=== PATIENT | female | born 1990 | race African-American/Black ===

== ENCOUNTER 2017-03-13 02:54 | Inpatient (IN) | payer BC ==
--- NOTE | ~2017-03-13 | HP ---
History And Physical [address] [place]. [address] NAME: AMENA TRUONG : [birth year] STATUS : ADM Donavon PAT#: [id number] AGE: 27 ADM/REG DATE : 03/13/17 MR#: [id number] REPORT SERV DATE: 03/13/17 DICTATED BY: PAIGE ALFARO DATE: 03/13/17 REPORT STATUS : Draft TRANSCRIBED BY: MODL DATE: 03/13/17 DATE OF ADMISSION: 03/13/2017 CHIEF COMPLAINT: A 27-year-old female presenting with nausea, hematemesis, and reported melena. HISTORY OF PRESENT ILLNESS: The patient's history was obtained through interview with the patient and her niece coupled with review of [facility] medical records. For about three or four days, the patient reports having increasing epigastric abdominal pain, a burning sharp discomfort, 8/10 severity at its worse, that does not radiate. It seems to be associated with increasing nausea. At first the nausea was accompanied by vomiting that appeared yellow green or like food contents, but then it has become intermittently tinged with blood and also looking like coffee grounds in the last 24 hours with a black discoloration. She also describes diarrhea with a black stool. No bright red blood per rectum. She has had hiccups, reflux symptoms. She has felt lightheaded, but no confusion. She admits to feeling short of breath characterized by dyspnea on exertion. No chest pain. No cough. REVIEW OF SYSTEMS: Otherwise, a 14-point review of systems was obtained and negative. PAST MEDICAL HISTORY: 1. Peptic ulcer disease. 2. Depression and anxiety. 3. Right lung mass described in January 2017, 1.4 x 1.6 cm of unclear importance, but with no known follow up since that time. PAST SURGICAL HISTORY: 1. Appendectomy. 2. Shoulder surgery. 3. Knee surgery. ALLERGIES: HYDROCODONE. SOCIAL HISTORY: No tobacco abuse. No alcohol abuse. Occasional marijuana use. She is single, has no biological children. She is unemployed and is seeking disability apparently for psychiatric reasons. FAMILY HISTORY: Diabetes and heart disease. CURRENT MEDICATIONS: Unknown at this time. We have requested that Pharmacy would History And Physical [address] [place] [address] NAME: AMENA TRUONG : [birth year] STATUS : ADM Donavon PAT#: [id number] AGE: 27 ADM/REG DATE : 03/13/17 MR#: [id number] REPORT SERV DATE: 03/13/17 DICTATED BY: PAIGE ALFARO DATE: 03/13/17 REPORT STATUS : Draft TRANSCRIBED BY: KANDICE DATE: 03/13/17 investigate and compile a medication list, but the patient is uncertain of her medicines even at this time. PHYSICAL EXAMINATION: VITAL SIGNS: Temperature 98.3, pulse 90, blood pressure 119/70, respiratory rate 20, O2 saturation 100% on room air. GENERAL: An irritable ill-appearing female, who describes distress from abdominal pain and nausea. There has been no active vomiting here in the emergency department for several hours though. HEENT: Pupils equal, round, and reactive to light. No conjunctival pallor. No scleral icterus. Nares are patent. Oropharynx was clear of obstruction. Moist mucous membranes. NECK: Trachea midline. No thyromegaly. LYMPHS: No cervical lymphadenopathy. No supraclavicular lymphadenopathy. RESPIRATORY: Clear to auscultation at bases. No wheezes, rales, or rhonchi. Normal respiratory effort. CARDIOVASCULAR: Regular rate and rhythm. No murmurs, rubs, or gallops. No extremity edema is appreciated. ABDOMEN: Soft by my exam. A flat abdomen. No distention, but is tender in the epigastric area, but I do not appreciate guarding effects or rebound. No hepatosplenomegaly. DERMATOLOGICAL: Warm and dry extremities. EXTREMITIES: No pallor. No cyanosis. PSYCHIATRIC: An animated affect and irritable and anxious mood. She is alert and oriented x3. LABORATORY DATA: White blood count 9.4, hemoglobin 13, hematocrit 39, platelets 229. Sodium 139, potassium 2.8, chloride 107, bicarb 24, BUN 15, creatinine 1.0, glucose 117. Serum test negative. Lipase 57. Liver enzymes within normal limits. STUDIES: An x-ray of the abdomen was reported as being "negative." ASSESSMENT AND PLAN: 1. Upper gastrointestinal bleed. Obtain a Gastroenterology consult with Dr. Nancy Ramirez. Place on IV proton pump inhibitor drip. Follow hemoglobin and hematocrit. 2. Hypokalemia. We will replace. Check magnesium. Placed on telemetry. 3. Right lung mass with no followup in the last few months and of uncertain importance. We will recheck a CT scan of the chest with contrast to help evaluate. [facility]/MODL Paige Alfaro M.D. / [id number] CC: History And Physical [address] [address] NAME: AMENA TRUONG : [birth year] STATUS : ADM Donavon PAT#: [id number] AGE: 27 ADM/REG DATE : 03/13/17 MR#: [id number] REPORT SERV DATE: 03/13/17 DICTATED BY: PAIGE ALFARO DATE: 03/13/17 REPORT STATUS : Draft TRANSCRIBED BY: KANDICE DATE: 03/13/17 MD Lydia Barraza
--- NOTE | ~2017-03-13 | DS ---
Discharge Summary [facility] [id number] [place]. [address] NAME: AMENA TRUONG : 86 STATUS : DIS IN PAT#: [id number] AGE: 27 ADM/REG DATE : 03/13/17 MR#: [id number] REPORT SERV DATE: 03/19/17 DICTATED BY: ELIAS MCKINLEY DATE: 03/18/17 REPORT STATUS : Draft TRANSCRIBED BY: MODL DATE: 03/18/17 ADMISSION DATE: 03/13/2017 DISCHARGE DATE: 03/18/2017 DISCHARGE DIAGNOSES: 1. Upper gastrointestinal bleed, resolved. 2. Esophagitis. 3. Status post esophagogastroduodenoscopy/colonoscopy. 4. Nausea and vomiting, resolved. 5. Hypokalemia, resolved. 6. Constipation, resolved. CONSULTATIONS: GI, Dr. Duncan, 03/14/2017. PROCEDURES AND IMAGIN. Abdominal x-ray, 03/13/2017. Impression: Bowel gas pattern is normal. No evidence of upper intraperitoneal air. No suspicious abnormal calcifications or areas of significant mass effect are identified. 2. CT chest, 03/13/2017. Impression: There has been involution of the right side lung mass previously identified. The lungs are clear. Heart is normal. 3. EGD, 03/14/2017. Impression: LA grade B reflux esophagitis. Z-line 39 cm from the incisors. Hiatal hernia. Erythematous mucosa in the gastric body. Biopsy. Gastritis. Biopsy. Normal duodenal bulb and second part of duodenum. Recommendation: No aspirin, ibuprofen, naproxen, or nonsteroidal anti-inflammatory medication. HOSPITAL COURSE: Please refer to history and physical dictated by Dr. Shaq Mcleod on 03/13/2017 for complete admission details as well as consultation note by Dr. Duncan. This patient is a 27-year-old female, who presented with complaints of nausea, vomiting, hematemesis, and reported melena. The patient stated upon admission that this has been ongoing for three to four days. Did state that she had epigastric pain with burning sharp discomfort, rating the scale on 8/10. The patient did describe her bowel movements as black. Denies bright red bleeding from rectum. The patient was admitted to the hospital. GI consult was obtained. The patient was evaluated by Dr. Duncan. The patient did undergo an EGD and colonoscopy. Findings as noted above. The patient was started on a clear liquid diet as well as Reglan. Continued on Protonix. The patient has been able to tolerate diet as tolerated. We will continue Reglan upon discharge as well as Protonix. The patient will follow up with GI in two to four weeks. The patient did have history of possible lung mass. Imaging obtained noted above stated involution of mass. The patient will continue follow up with her primary care. The patient had nausea and vomiting which has resolved. The patient also had noted hypokalemia upon admission, this was monitored per protocol and replaced. The patient did have regular bowel movement on 03/17/2017 without difficulty. The patient will be discharged home in hemodynamically stable condition to follow up with her primary care doctor and GI in two to four weeks. DISCHARGE MEDICATIONS: Discharge Summary [address] [address] NAME: AMENA TRUONG : 86 STATUS : DIS IN PAT#: [id number] AGE: 27 ADM/REG DATE : 03/13/17 MR#: [id number] REPORT SERV DATE: 03/19/17 DICTATED BY: ELIAS MCKINLEY DATE: 03/18/17 REPORT STATUS : Draft TRANSCRIBED BY: KANDICE DATE: 03/18/17 1. Reglan 10 mg one p.o. before breakfast and at bedtime. 2. Protonix 40 mg one p.o. b.i.d. breakfast and supper. 3. MiraLAX powder p.o. one packet twice daily p.r.n. 4. Phenergan 25 mg one p.o. every 6 hours p.r.n. for nausea. This discharge took less than 30 minutes. [facility]/MODL Elias Mckinley NP / [id number] CC: Vito Mckenzie MD
--- NOTE | ~2017-03-13 | EGD ---
EGD REPORT [facility] [address] [place] [address] NAME: MADHURI TRUONG : 86 STATUS : ADM Donavon PAT#: [id number] AGE: 27 ADM/REG DATE : 03/13/17 MR#: [id number] REPORT SERV DATE: 03/14/17 DICTATED BY: YOMI PETERSON DATE: 03/14/17 REPORT STATUS : Draft TRANSCRIBED BY: [facility] DATE: 03/14/17 Endoscopy Center Patient Name: Mdahuri Truong Date of : 1990 Attending MD: YOMI PETERSON, Procedure Date No Time: 03/14/2017 Procedure: Upper GI endoscopy Indications: Generalized abdominal pain, Hematemesis Medicines: Propofol per Anesthesia Complications: No immediate complications. Estimated blood loss: Minimal. Procedure: Pre-Anesthesia Assessment: - ASA Grade Assessment: II - A patient with mild systemic disease. After obtaining informed consent, the endoscope was passed under direct vision. Throughout the procedure, the patient's blood pressure, pulse, and oxygen saturations were monitored continuously. The GIF [id number] was introduced through the mouth, and advanced to the second part of duodenum. The upper GI endoscopy was accomplished with ease. The patient tolerated the procedure well. Findings: LA Grade B (one or more mucosal breaks greater than 5 mm, not extending between the tops of two mucosal folds) esophagitis with no bleeding was found 30 to 39 cm from the incisors. The Z-line was found 39 cm from the incisors. A small hiatus hernia was present. Localized severely erythematous mucosa, flattened, superficial and very localized/geographic) without bleeding was found in the proximal gastric body. Biopsies were taken with a cold forceps for histology. Estimated blood loss was minimal. Mild inflammation characterized by congestion (edema), erosions and erythema was found in the gastric antrum. Biopsies were taken with a cold forceps for histology. Estimated blood loss: none. The duodenal bulb and 2nd part of the duodenum were normal. Impression: - LA Grade B reflux esophagitis. - Z-line 39 cm from the incisors. - Hiatus hernia. - Erythematous mucosa in the gastric body. Biopsied. - Gastritis. Biopsied. - Normal duodenal bulb and 2nd part of the duodenum. EGD REPORT [address] [address] NAME: MADHURI TRUONG : [birth year] STATUS : ADM Donavon PAT#: [id number] AGE: 27 ADM/REG DATE : 03/13/17 MR#: [id number] REPORT SERV DATE: 03/14/17 DICTATED BY: YOMI PETERSON DATE: 03/14/17 REPORT STATUS : Draft TRANSCRIBED BY: [employer] DATE: 03/14/17 Recommendation: - [facility]. - Use Protonix (pantoprazole) 40 mg IV BID. - Follow an antireflux regimen. - No aspirin, ibuprofen, naproxen, or other non-steroidal anti-inflammatory drugs. - Clear liquid diet today. advance as tolerated - Await pathology results. Procedure Code(s): --- Professional --- 28457, Esophagogastroduodenoscopy, flexible, transoral; with biopsy, single or multiple Diagnosis Code(s): --- Professional --- K21.0, Gastro-esophageal reflux disease with esophagitis K44.9, Diaphragmatic hernia without obstruction or gangrene K31.9, Disease of stomach and duodenum, unspecified K29.70, Gastritis, unspecified, without bleeding R10.84, Generalized abdominal pain K92.0, Hematemesis CPT copyright 2013 [employer]. All rights reserved. The codes documented in this report are preliminary and upon outbound sales advisor review may be revised to meet current compliance requirements. YOMI PETERSON, 03/14/2017 5:27 PM This report has been signed electronically. Number of Addenda: 0 Note Initiated On: 03/14/2017 3:22 PM Scope Withdrawal Time 0 hours 0 minutes 0 seconds [address] [place] [address]
--- NOTE | ~2017-03-13 | CN ---
Consultation Report [facility] [address] [place]. [address] NAME: AMENA TRUONG : [birth year] STATUS : ADM Donavon PAT#: [id number] AGE: 27 ADM/REG DATE : 03/13/17 MR#: [id number] REPORT SERV DATE: 03/14/17 DICTATED BY: YOMI DUNCAN DATE: 03/14/17 REPORT STATUS : Draft TRANSCRIBED BY: MODL DATE: 03/14/17 DATE OF CONSULTATION: 03/13/2017 REASON FOR CONSULTATION: Hematemesis. HISTORY OF PRESENT ILLNESS: Ms. Truong is a 27-year-old black female with a history of a high blood pressure and peptic ulcer disease, who usually follows with Dr. Shah at [place] and had been hospitalized there recently for peptic ulcer disease as per the patient, who presented to [facility] with nausea, vomiting, diarrhea, and david hematemesis. She denies any bowel movements. No melena. No hematochezia. Last episode of hematemesis was the day prior to her admission. Her hemoglobin and hematocrit are 11.7 and 34.1 respectively, platelets 183, INR 1.2, MCV 92.4. BUN-creatinine ratio is 10-0.75. She had a CT of her chest done earlier today, which is pending at this time. Due to her mild distress, she is not able to cooperate fully and is not fully answering all of her questions at this time. PAST MEDICAL HISTORY: Peptic ulcer disease, hypertension. FAMILY HISTORY: Noncontributory. SOCIAL HISTORY: Denies. PHYSICAL EXAMINATION: VITAL SIGNS: Stable. Afebrile. GENERAL: The patient is awake, alert, and oriented x3. Well developed, well nourished, in mild distress secondary to nausea and fatigue per patient. HEENT: Atraumatic, normocephalic. Anicteric. Mucous membranes are moist. CARDIAC: S1, S2. CHEST: Clear, but poor inspiratory and expiratory effort. ABDOMEN: Soft, but tender to palpation diffusely without any rebound or guarding. Bowel sounds are normoactive. LABORATORY DATA: Shows WBC 7.8, hemoglobin 11.7, hematocrit 34.1, platelets 183, MCV 92.4, INR is 1.2. Sodium 141, potassium 3.3, chloride 109, bicarb 22, BUN 10, creatinine 0.75, glucose 84, albumin 3.3. Liver enzymes are normal. Lipase and TSH are normal. IMAGING: CT of the chest is pending at this time. IMPRESSION AND PLAN: Hematemesis of unclear etiology. Does have some mild anemia. Would like to see previous endoscopy records from Dr. Pablo Hines's office. Continue PPI, continue serial hemoglobin and hematocrit, and monitor for any further clinical bleeding. We will make n.p.o. after midnight and schedule for an EGD tomorrow. I reviewed the procedure indications, risks, benefits, and alternatives with the patient. She is agreeable to proceed with the above. Consultation Report [address] [place]. [address] NAME: AMENA TRUONG : [birth year] STATUS : ADM Donavon PAT#: [id number] AGE: 27 ADM/REG DATE : 03/13/17 MR#: [id number] REPORT SERV DATE: 03/14/17 DICTATED BY: YOMI DUNCAN DATE: 03/14/17 REPORT STATUS : Draft TRANSCRIBED BY: KANDICE DATE: 03/14/17 JÚNIOR/KANDICE Yomi Duncan MD / [id number] CC: Vito Mckenzie MD NO PCP
[2017-03-13 02:16] LABS: BASOPHILS 0.2 %; BASOPHILS ABSOLUTE 0.02 10/3/uL (0.0-0.16); EOSINOPHILS 0.2 %; EOSINOPHILS ABSOLUTE 0.02 10/3/uL (0.0-0.53); ER CBC TAT 0 Hrs 02 Mins; HEMATOCRIT 39.1 % (36.0-48.0); HEMOGLOBIN 13.4 g/dL (12.0-16.0); IMMATURE GRANULOCYTES 0.2 %; IMMATURE GRANULOCYTES ABSOLUTE 0.02 10/3/uL (0.0-0.11); LYMPHOCYTES 16.4 %; LYMPHOCYTES ABSOLUTE 1.54 10/3/uL (0.67-4.30); MEAN CORPUS HGB CONC 34.3 g/dL (32.0-36.0); MEAN CORPUSCULAR HEMOGLOB 31.4 pg (26.0-34.0); MEAN PLATELET VOLUME 9.6 fL (9.2-13.0); MONOCYTES 5.2 %; MONOCYTES ABSOLUTE 0.49 10/3/uL (0.21-1.20); NEUTROPHILS 77.8 %; NEUTROPHILS ABSOLUTE 7.28 10/3/uL (2.02-8.40); PLATELET COUNT 229 10/3/uL (150-400); RED CELL COUNT 4.27 10/6/uL (4.0-5.6); WHITE BLOOD CELLS 9.4 10/3/uL (4.5-10.5)
[2017-03-13 02:17] LABS: MANUAL DIFF NO %; MEAN CORPUSCULAR VOLUME 91.6 fL (80-100)
[2017-03-13 02:30] LABS: A/G RATIO 1.1 (0.7-1.9); ALBUMIN 4.1 G/DL (3.5-5.0); ALKALINE PHOSPHATASE 55 U/L (45-117); BUN (BLOOD UREA NITROGEN) 15 MG/DL (6-23); CALCIUM, SERUM 8.9 MG/DL (8.5-10.4); CHLORIDE, SERUM 107 MMOL/L (96-112); CO2 (CARBON DIOXIDE) 24 MMOL/L (24-34); CREATININE 1.04 MG/DL (0.55-1.02); GFR AFRICAN AMERICAN 84 ML/MIN (>=60); GFR NON AFRICAN AMERICAN 73 ML/MIN (>=60); GLOBULIN 3.8 G/DL (2.5-4.1); GLUCOSE, SERUM 117 MG/DL (60-99); SGOT(AST) 30 U/L (5-40); SGPT(ALT) 27 U/L (5-65); SODIUM, SERUM 139 MMOL/L (135-148); TOTAL BILIRUBIN 0.5 MG/DL (0-1.2); TOTAL PROTEIN 7.9 G/DL (6.0-8.5)
[2017-03-13 02:34] LABS: POTASSIUM, SERUM 2.8 MMOL/L (3.5-5.3)
[2017-03-13] MEDS ORDERED: PRILO PO (09:19)
[2017-03-13] MEDS ORDERED: PR25 PO (09:19)
[2017-03-13 13:07] LABS: HEMATOCRIT 36.6 % (36.0-48.0); HEMOGLOBIN 12.5 g/dL (12.0-16.0); MANUAL DIFF YES %; MEAN CORPUS HGB CONC 34.2 g/dL (32.0-36.0); MEAN CORPUSCULAR HEMOGLOB 31.6 pg (26.0-34.0); MEAN CORPUSCULAR VOLUME 92.4 fL (80-100); MEAN PLATELET VOLUME 10.5 fL (9.2-13.0); PLATELET COUNT 183 10/3/uL (150-400); RBC DISTRIBUTION WIDTH 12.9 % (12.0-16.0); RED CELL COUNT 3.96 10/6/uL (4.0-5.6); WHITE BLOOD CELLS 7.8 10/3/uL (4.5-10.5)
[2017-03-13 13:12] LABS: INTERNATIONAL NORMAL RATI 1.2 UNITS (-); PARTIAL THROMBO TIME 29.5 SEC (22.5-37.2); PROTIME (NOT ORD) 14.8 SEC (12.0-14.5)
[2017-03-13 13:29] LABS: ALBUMIN 3.3 G/DL (3.5-5.0); ALKALINE PHOSPHATASE 44 U/L (45-117); BUN (BLOOD UREA NITROGEN) 10 MG/DL (6-23); CALCIUM, SERUM 8.2 MG/DL (8.5-10.4); CHLORIDE, SERUM 109 MMOL/L (96-112); CO2 (CARBON DIOXIDE) 22 MMOL/L (24-34); CREATININE 0.75 MG/DL (0.55-1.02); GFR AFRICAN AMERICAN 125 ML/MIN (>=60); GFR NON AFRICAN AMERICAN 108 ML/MIN (>=60); GLOBULIN 3.2 G/DL (2.5-4.1); GLUCOSE, SERUM 84 MG/DL (60-99); POTASSIUM, SERUM 3.3 MMOL/L (3.5-5.3); SGOT(AST) 22 U/L (5-40); SGPT(ALT) 18 U/L (5-65); SODIUM, SERUM 141 MMOL/L (135-148); TOTAL BILIRUBIN 0.7 MG/DL (0-1.2); TOTAL PROTEIN 6.5 G/DL (6.0-8.5); ULTRASENSITIVE TSH 0.746 MCIU/ML (0.358-3.740)
[2017-03-13 13:37] LABS: BASOPHILS 1 %; BASOPHILS ABSOLUTE (CALC) 0.08 10/3/uL (0.0-0.16); LYMPHOCYTES 17 %; LYMPHOCYTES ABSOLUTE (CALC) 1.33 10/3/uL (0.67-4.30); MONOCYTES 3 %; MONOCYTES ABSOLUTE (CALC) 0.23 10/3/uL (0.21-1.20); NEUTROPHILS ABSOLUTE (CALC) 6.16 10/3/uL (2.02-8.40); SEGMENTED NEUTROPHIL (0) 79 %; TOTAL NUCLEATED CELLS 100
[2017-03-13 13:38] LABS: PLATELET ESTIMATE ADQ (ADEQUATE); RBC MORPHOLOGY NORM (NORMAL)
[2017-03-13 17:13] LABS: HEMATOCRIT 34.1 % (36.0-48.0); HEMOGLOBIN 11.7 g/dL (12.0-16.0)
[2017-03-14 00:34] LABS: HEMATOCRIT 32.6 % (36.0-48.0)
[2017-03-14 08:52] LABS: HEMATOCRIT 33.6 % (36.0-48.0); HEMOGLOBIN 11.2 g/dL (12.0-16.0)
[2017-03-14 09:05] LABS: CALCIUM, SERUM 7.9 MG/DL (8.5-10.4); CHLORIDE, SERUM 109 MMOL/L (96-112); CO2 (CARBON DIOXIDE) 22 MMOL/L (24-34); CREATININE 0.74 MG/DL (0.55-1.02); GFR AFRICAN AMERICAN 127 ML/MIN (>=60); GFR NON AFRICAN AMERICAN 109 ML/MIN (>=60); GLUCOSE, SERUM 80 MG/DL (60-99); POTASSIUM, SERUM 3.5 MMOL/L (3.5-5.3); SODIUM, SERUM 140 MMOL/L (135-148)
[2017-03-14 09:06] LABS: BUN (BLOOD UREA NITROGEN) 6 MG/DL (6-23)
[2017-03-16 07:58] LABS: BUN (BLOOD UREA NITROGEN) 3 MG/DL (6-23); CALCIUM, SERUM 8.2 MG/DL (8.5-10.4); CHLORIDE, SERUM 109 MMOL/L (96-112); CO2 (CARBON DIOXIDE) 23 MMOL/L (24-34); CREATININE 0.74 MG/DL (0.55-1.02); GFR AFRICAN AMERICAN 127 ML/MIN (>=60); GFR NON AFRICAN AMERICAN 109 ML/MIN (>=60); POTASSIUM, SERUM 4.1 MMOL/L (3.5-5.3); SODIUM, SERUM 144 MMOL/L (135-148)
[2017-03-16 08:02] LABS: GLUCOSE, SERUM 98 MG/DL (60-99)
[2017-03-16 08:08] LABS: HEMATOCRIT 36.6 % (36.0-48.0); HEMOGLOBIN 12.4 g/dL (12.0-16.0)
[2017-03-17 20:14] LABS: BASOPHILS 0.3 %; BASOPHILS ABSOLUTE 0.02 10/3/uL (0.0-0.16); EOSINOPHILS 2.9 %; EOSINOPHILS ABSOLUTE 0.18 10/3/uL (0.0-0.53); HEMATOCRIT 38.8 % (36.0-48.0); HEMOGLOBIN 13.4 g/dL (12.0-16.0); IMMATURE GRANULOCYTES 0.2 %; IMMATURE GRANULOCYTES ABSOLUTE 0.01 10/3/uL (0.0-0.11); LYMPHOCYTES 50.9 %; LYMPHOCYTES ABSOLUTE 3.19 10/3/uL (0.67-4.30); MEAN CORPUS HGB CONC 34.5 g/dL (32.0-36.0); MEAN CORPUSCULAR HEMOGLOB 32.3 pg (26.0-34.0); MEAN CORPUSCULAR VOLUME 93.5 fL (80-100); MEAN PLATELET VOLUME 9.8 fL (9.2-13.0); MONOCYTES 14.8 %; MONOCYTES ABSOLUTE 0.93 10/3/uL (0.21-1.20); NEUTROPHILS 30.9 %; NEUTROPHILS ABSOLUTE 1.94 10/3/uL (2.02-8.40); RBC DISTRIBUTION WIDTH 12.6 % (12.0-16.0); RED CELL COUNT 4.15 10/6/uL (4.0-5.6); WHITE BLOOD CELLS 6.3 10/3/uL (4.5-10.5)
[2017-03-17 20:15] LABS: MANUAL DIFF NO %; PLATELET COUNT 241 10/3/uL (150-400)
[2017-03-18] MEDS ORDERED: PROTONIX PO (13:56)
[2017-03-18] MEDS ORDERED: REG (13:57)
[2017-03-18] MEDS ORDERED: ZOFRAN4 PO (13:57)
== END 2017-03-18 15:14 | disposition home or self-care (01) | DRG 379 ==
LOC: ER 02:54 → 2SO 06:23
PROVIDERS: Hospitalist; Internal Medicine; Nurse Practitioner Adult Health; Nurse Practitioner Family; Specialist
PROC: 0DB68ZX Excision of Stomach, Via Natural or Artificial Opening Endoscopic, Diagnostic (ICD-10-PCS; principal; 2017-03-13)
DX: K92.2 Gastrointestinal hemorrhage, unspecified (principal); F32.9 Major depressive disorder, single episode, unspecified; F41.9 Anxiety disorder, unspecified; K31.9 Disease of stomach and duodenum, unspecified; K29.70 Gastritis, unspecified, without bleeding; R91.8 Other nonspecific abnormal finding of lung field; E87.6 Hypokalemia; K59.00 Constipation, unspecified; D64.9 Anemia, unspecified; K44.9 Diaphragmatic hernia without obstruction or gangrene; K29.80 Duodenitis without bleeding; Z98.890 Other specified postprocedural states; Z88.5 Allergy status to narcotic agent; Z82.49 Family history of ischemic heart disease and other diseases of the circulatory system; Z83.3 Family history of diabetes mellitus
CPT/HCPCS: 36415; 36600; 71260; 74022; 80048; 80053; 80305; 81001; 82150; 82330; 82803; 82947; 83690; 83735; 84132; 84295; 84443; 84703; 85014; 85018; 85025; 85610; 85730; 86850; 86900; 86901; 88305; 93005; 96374; 96375; 99285; A9270-GY; C9113; J2405; J2930; Q9967

== ENCOUNTER 2017-04-14 20:47 | Emergency (ER) | payer BC ==
[2017-04-14 18:20] LABS: BASOPHILS 0.4 %; BASOPHILS ABSOLUTE 0.02 10/3/uL (0.0-0.16); EOSINOPHILS 1.6 %; EOSINOPHILS ABSOLUTE 0.09 10/3/uL (0.0-0.53); ER CBC TAT 0 Hrs 05 Mins; HEMOGLOBIN 13.4 g/dL (12.0-16.0); IMMATURE GRANULOCYTES 0.2 %; IMMATURE GRANULOCYTES ABSOLUTE 0.01 10/3/uL (0.0-0.11); LYMPHOCYTES 33.5 %; MEAN CORPUS HGB CONC 33.5 g/dL (32.0-36.0); MEAN CORPUSCULAR HEMOGLOB 31.8 pg (26.0-34.0); MEAN CORPUSCULAR VOLUME 94.8 fL (80-100); MEAN PLATELET VOLUME 9.4 fL (9.2-13.0); MONOCYTES 15.5 %; MONOCYTES ABSOLUTE 0.88 10/3/uL (0.21-1.20); NEUTROPHILS 48.8 %; NEUTROPHILS ABSOLUTE 2.78 10/3/uL (2.02-8.40); PLATELET COUNT 239 10/3/uL (150-400); RBC DISTRIBUTION WIDTH 13.2 % (12.0-16.0); RED CELL COUNT 4.22 10/6/uL (4.0-5.6); WHITE BLOOD CELLS 5.7 10/3/uL (4.5-10.5)
[2017-04-14 18:24] LABS: MANUAL DIFF NO %
[2017-04-14 18:35] LABS: A/G RATIO 1.2 (0.7-1.9); ALBUMIN 4.2 G/DL (3.5-5.0); ALKALINE PHOSPHATASE 55 U/L (45-117); BUN (BLOOD UREA NITROGEN) 10 MG/DL (6-23); CALCIUM, SERUM 9.1 MG/DL (8.5-10.4); CHLORIDE, SERUM 109 MMOL/L (96-112); CO2 (CARBON DIOXIDE) 23 MMOL/L (24-34); CREATININE 0.91 MG/DL (0.55-1.02); GFR AFRICAN AMERICAN 99 ML/MIN (>=60); GFR NON AFRICAN AMERICAN 85 ML/MIN (>=60); GLOBULIN 3.4 G/DL (2.5-4.1); GLUCOSE, SERUM 120 MG/DL (60-99); POTASSIUM, SERUM 3.5 MMOL/L (3.5-5.3); SGPT(ALT) 20 U/L (5-65); SODIUM, SERUM 140 MMOL/L (135-148); TOTAL BILIRUBIN 0.5 MG/DL (0-1.2); TOTAL PROTEIN 7.6 G/DL (6.0-8.5)
[2017-04-14 18:36] LABS: SGOT(AST) 17 U/L (5-40)
[~2017-04-14 20:47] MED LIST: PR25 PO; PRILO PO; PROTONIX PO; REG; ZOFRAN4 PO
== END 2017-04-14 23:50 | disposition home or self-care (01) ==
LOC: ER 20:47
PROVIDERS: Emergency Medicine
DX: R10.9 Unspecified abdominal pain (principal); R11.2 Nausea with vomiting, unspecified; F32.9 Major depressive disorder, single episode, unspecified; F41.9 Anxiety disorder, unspecified; F17.200 Nicotine dependence, unspecified, uncomplicated; Z90.49 Acquired absence of other specified parts of digestive tract; Z79.899 Other long term (current) drug therapy
CPT/HCPCS: 74176; 80053; 81001; 83690; 84703; 85025; 96374; 96375; 99284; C9113; J1170; J2550; J2765

== ENCOUNTER 2017-05-11 16:10 | Emergency (ER) | payer BC ==
[2017-05-11 14:41] LABS: BASOPHILS 0.4 %; BASOPHILS ABSOLUTE 0.02 10/3/uL (0.0-0.16); EOSINOPHILS 0 %; HEMATOCRIT 38.7 % (36.0-48.0); HEMOGLOBIN 12.6 g/dL (12.0-16.0); IMMATURE GRANULOCYTES 0.2 %; IMMATURE GRANULOCYTES ABSOLUTE 0.01 10/3/uL (0.0-0.11); LYMPHOCYTES 12.7 %; MEAN CORPUS HGB CONC 32.6 g/dL (32.0-36.0); MEAN CORPUSCULAR HEMOGLOB 30.8 pg (26.0-34.0); MEAN CORPUSCULAR VOLUME 94.6 fL (80-100); MEAN PLATELET VOLUME 9.4 fL (9.2-13.0); MONOCYTES 4.5 %; MONOCYTES ABSOLUTE 0.25 10/3/uL (0.21-1.20); NEUTROPHILS 82.2 %; NEUTROPHILS ABSOLUTE 4.52 10/3/uL (2.02-8.40); PLATELET COUNT 263 10/3/uL (150-400); RBC DISTRIBUTION WIDTH 13.2 % (12.0-16.0); RED CELL COUNT 4.09 10/6/uL (4.0-5.6); WHITE BLOOD CELLS 5.5 10/3/uL (4.5-10.5)
[2017-05-11 14:42] LABS: MANUAL DIFF NO %
[2017-05-11 14:56] LABS: A/G RATIO 1.1 (0.7-1.9); ALBUMIN 3.6 G/DL (3.5-5.0); ALKALINE PHOSPHATASE 62 U/L (45-117); BUN (BLOOD UREA NITROGEN) 5 MG/DL (6-23); CALCIUM, SERUM 8.3 MG/DL (8.5-10.4); CHLORIDE, SERUM 111 MMOL/L (96-112); CO2 (CARBON DIOXIDE) 25 MMOL/L (24-34); CREATININE 0.75 MG/DL (0.55-1.02); GFR AFRICAN AMERICAN 125 ML/MIN (>=60); GFR NON AFRICAN AMERICAN 108 ML/MIN (>=60); GLOBULIN 3.3 G/DL (2.5-4.1); GLUCOSE, SERUM 99 MG/DL (60-99); POTASSIUM, SERUM 3.7 MMOL/L (3.5-5.3); SGOT(AST) 26 U/L (5-40); SGPT(ALT) 38 U/L (5-65); SODIUM, SERUM 143 MMOL/L (135-148); TOTAL BILIRUBIN 0.4 MG/DL (0-1.2); TOTAL PROTEIN 6.9 G/DL (6.0-8.5)
[2017-05-11 15:47] LABS: ASCORBIC ACID (UR NOT ORDER) NEG (NEG); BILIRUBIN, URINE NEGATIVE (NEG); ER URINALYSIS TAT 0 Hrs 18 Mins; KETONE, URINE NEGATIVE (NEG); NITRITE (URINE) NEG (NEG); WBC (NOT ORDERED) (RFLEX) 10 (0-5)
[2017-05-11 15:48] LABS: LEUKOCYTE ESTERASE(NOT OR TRACE (NEG)
== END 2017-05-11 16:20 | disposition home or self-care (01) ==
LOC: ER 16:10
PROVIDERS: Physician Assistant
DX: R10.84 Generalized abdominal pain (principal); R11.2 Nausea with vomiting, unspecified; F17.200 Nicotine dependence, unspecified, uncomplicated; Z90.49 Acquired absence of other specified parts of digestive tract; Z88.6 Allergy status to analgesic agent; Z79.899 Other long term (current) drug therapy
CPT/HCPCS: 80053; 81001; 82150; 83690; 84703; 85025; 96372; 99284; J1170; J2550